=== PATIENT | female | born 1985 | race Caucasian/White ===

== ENCOUNTER 2017-01-02 20:04 | Emergency (ER) | payer OTHER ==
[~2017-01-02] VITALS: Ht 170.2 cm; Wt 118.2 kg
[~2017-01-02 20:04] MED LIST: ONDA4TAB6 PO; ONDA8TAB10 PO; OXYC1TAB24 PO
[2017-01-02 20:05] VITALS: BP 141/94; PULSE 72; RESP 20; O2SAT 97
--- NOTE | 2017-01-02 23:07 | ED.REPORT ---
HPI-Neck Pain Free Text HPI Notes Jan 02, 2017 ED Provider: Stewart Centeno MD A 31 year old female with a history of possible distant herniated disc in her neck presents to the ED complaining of neck pain. The pt was lifting a backpack two days ago when she "felt her neck pop." She did not experience much pain initially, but by the next day she was unable to turn her head or tilt it back. The pt is also complaining of nausea and left arm numbness, as well as pain below her shoulder blades. Nursing Notes Stated Complaint: NECK PAIN Chief Complaint: Head, Face, Neck Trauma Nursing Notes Reviewed: Yes Allergies: Coded Allergies: Mortensen (Verified Allergy, Severe, Anaphylaxis, 11/10/15) Sulfa (Sulfonamide Antibiotics) (Verified Allergy, Severe, Hives, 11/10/15) erythromycin base (Verified Allergy, Mild, 01/02/17) sulfisoxazole (Verified Allergy, Mild, 01/02/17) Scheduled Dexamethasone (Dexamethasone) 4 Mg Tablet 4 MG PO BID Ondansetron ODT (Ondansetron ODT) 8 Mg Tab.rapdis 8 MG PO QID Scheduled PRN Cyclobenzaprine (Cyclobenzaprine) 10 Mg Tablet 10 MG PO TID PRN PRN Spasm Ibuprofen (Ibuprofen) 800 Mg Tablet 800 MG PO TID PRN PRN For Pain Ondansetron (Zofran) 4 Mg Tablet 4 MG PO Q4H PRN PRN For Nausea Ondansetron ODT (Ondansetron ODT) 8 Mg Tab.rapdis 8 MG PO Q4H PRN PRN For Nausea oxyCODONE-Acetaminophen 5-325 mg (oxyCODONE-Acetaminophen 5-325 mg) 1 Each Tablet 1-2 TAB PO Q4 Hours PRN PRN For Pain oxyCODONE-Acetaminophen 5-325 mg (oxyCODONE-Acetaminophen 5-325 mg) 1 Each Tablet 1-2 TAB PO Q6H PRN PRN For Pain oxyCODONE-Acetaminophen 5-325 mg (oxyCODONE-Acetaminophen 5-325 mg) 1 Each Tablet 1-2 TAB PO Q6H PRN PRN For Pain General Time Seen by Provider: 23:06 Chief Complaint Neck pain Hx Obtained From: Patient Arrived By: Walk-in Sudden in Onset?: Yes Onset Occurred: 1 day ago Symptom Duration: Since onset Progression Since Onset: Gradually worsening Recent Healthcare: No recent doctor visit, No recent hospitalization Similar Sx Previous: No Past Medical History Past Medical History Notes: Seen in ED November 10, 2015 for epigastric pain, ultrasound normal to Patient underwent HIDA scan November 17, hyperdynamic EF Past Medical History Obesity Possible disc herniation Past Surgical History none reported Smoking History Current Every Day Smoker Social History Alcohol Use: Denies alcohol use Drug Use: Denies drug use Other Social History: Good social support Ambulatory Status Independent Review of Systems Review of Systems Note: neck stiffness Respiratory: Denies: Non-productive cough Cardiovascular: Denies: Chest pain GI: Reports: Nausea, Denies: Abdominal pain Musculoskeletal: Reports: Back pain ("below shoulder blades"), Neck pain Skin: Denies Rash Neurologic: Reports: Numbness Complete sys rev & neg: except as marked. Physical Exam Initial Vital Signs Vital Signs (First) Date Time Temp Pulse Resp B/P Pulse Ox O2 Delivery O2 Flow Rate FiO2 01/02/17 20:05 36.3 72 20 141/94 97 Initial VS: Reviewed General/Constitutional: Awake, Alert Neck: Atraumatic limited ROM in neck Neurologic: Oriented X3, Speech NL, No motor deficits, No sensory deficits ENT: Atraumatic, Airway patent, Mucous membranes moist Respiratory / Chest: Atraumatic, Breath sounds NL, Breath sounds = bilat, No respiratory distress Cardiovascular: Heart rate NL, Regular rhythm, Heart sounds NL Back: Atraumatic, Full range of motion Upper Extremity / MS: Atraumatic, Full range of motion Skin: Atraumatic, Color NL, No rash, Warm, Dry Head / Eyes: Atraumatic, Normocephalic, PERRL, EOMI Abdomen: Atraumatic, Soft, Non-tender Lower Extremity / Pelvis / MS: Atraumatic, Full range of motion Psychiatric: Affect NL, Mood NL Interpretation & Diagnostics X-Ray C-Spine Interpretation no acute findings Interpretation / Wet Read by: Wet read ED physician Re-Eval/Medical Decision Med Decision/Clinical Course 31-year-old female presents with torticollis and radiculopathy in the left arm after trivial movement of her neck. X-rays negative for bony derangement and negative for locked facet. Improved here after Decadron and Toradol and Ativan, although still moderately stiff. Soft collar provided. Home with ibuprofen or Naprosyn, Percocet, and requested Flexeril. Discharged in stable condition. Follow up with PCP. Source of Hx: Old records Re-Evaluation/Progress : Time of Eval: 01:16 Patient Status: Condition improved Re-Evaluation/Progress Note: Pt rechecked, who is comfortable. She is informed of her diagnosis and the plan for discharge. The pt understands and agrees with the plan. All questions are addressed at this time. Counseled Regarding: Diagnosis, Lab results, Need for follow-up, When/why to return to ED Discharge & Departure Primary Impression: Torticollis, acquired Additional Impression: Cervical radiculopathy Disposition: Home Discharge Condition All VS Reviewed: Yes Condition: Stable Patient Instructions: Spasmodic Torticollis (ED) Additional Instructions: We do not see any evidence of bony derangement in her neck. This is muscle spasm causing her pain. Wear a soft collar either full-time or at least to sleep to protect your neck. Begin ibuprofen 800 mg three times daily. Begin Decadron twice daily for three days. Begin Ativan 1 mg three times daily. Vicodin sparingly for pain as needed. Follow-up with your doctor in the office. If the numbness and tingling is not improving, you may need additional imaging with MRI. Return if any immediate issues. Referrals: Jennyfer Aldrich MD (PCP) ED Scribe Statement Portions of this note were transcribed by Magnus Card. I, Dr. Centeno personally performed the history, physical exam and medical decision-making; I reviewed and confirmed the accuracy of the information in the transcribed note. Signed by: Amy Penaloza, 01/03/2017 and 0115. copies to: Jennyfer Aldrich MD, Christopher W MD Jan 02, 2017 23:07 MAGNUS CARD Jan 02, 2017 23:37
[2017-01-02] MEDS ORDERED: Ketorolac 30 mg/mL 2 mL Inj IM ONE (23:35)
[2017-01-02] MEDS ORDERED: LORazepam 1 mg Tablet PO ONE (23:35)
[2017-01-02] MEDS ORDERED: Dexamethasone 20 mg/2 mL Oral Solution PO ONE (23:35)
[2017-01-03] MEDS ORDERED: HYDR-4003 PO (01:07)
[2017-01-03] MEDS ORDERED: LORA1TAB PO (01:07)
[2017-01-03] MEDS ORDERED: DXM4T PO (01:07)
[2017-01-03] MEDS ORDERED: IBUP800T28 PO (01:07)
[2017-01-03] MEDS ORDERED: Ondansetron 8 mg ODT Tablet PO ONE (01:10)
[2017-01-03] MEDS ORDERED: ONDA8TAB10 PO (01:11)
[2017-01-03] MEDS ORDERED: OXYC1TAB24 PO (01:25)
[2017-01-03] MEDS ORDERED: CYCL10TA9 PO (01:25)
[2017-01-03 01:38] VITALS: BP 141/94; PULSE 72; RESP 20; O2SAT 97
--- NOTE | 2017-01-03 10:07 | DRSVH ---
PROCEDURE: X-RAY CERVICAL SPINE, 2 OR 3 VIEWS INDICATIONS: locked neck, spasm TECHNIQUE: 4 view(s) of the cervical spine were acquired. COMPARISON: None. FINDINGS: Bones: No fractures or dislocations to the T1 level. The lateral masses of C1 appear intact on the odontoid view. No suspicious bony lesions. Soft tissues: No prevertebral soft tissue swelling. IMPRESSION: Loss of lordosis otherwise normal C-spine. Dictated by: Urban Grant [facility] Interpreted: Aure Boone MD on 01/03/2017 at 10:06 Transcribed by: EDVIN on 01/03/2017 at 10:07 Approved by: Aure Boone MD, PhD on 01/03/2017 at 16:57
== END 2017-01-03 01:40 | disposition home or self-care (01) ==
LOC: SED 20:04
DX: M43.6 Torticollis (principal); M54.12 Radiculopathy, cervical region; X50.0XXA Overexertion from strenuous movement or load, initial encounter; Y92.009 Unspecified place in unspecified non-institutional (private) residence as the place of occurrence of the external cause; Y93.89 Activity, other specified; Y99.8 Other external cause status; E66.9 Obesity, unspecified; F17.200 Nicotine dependence, unspecified, uncomplicated; Z68.41 Body mass index [BMI] 40.0-44.9, adult; Z88.2 Allergy status to sulfonamides; Z88.1 Allergy status to other antibiotic agents
CPT/HCPCS: 72040; 96372; 99284; J1885

== ENCOUNTER 2017-03-07 14:37 | Emergency (ER) | payer OTHER ==
[~2017-03-07] VITALS: Ht 167.6 cm; Wt 122.7 kg
[~2017-03-07 14:37] MED LIST changes: +CYCL10TA9 PO; +DXM4T PO; +IBUP800T28 PO
[2017-03-07 15:14] VITALS: BP 131/94; PULSE 101; RESP 16; O2SAT 97
--- NOTE | 2017-03-07 16:55 | ED.REPORT ---
HPI-Rash / Abscess Date of Service March 07, 2017 ED Provider: Corry Valero History of Present Illness: started on right breast 5 days ago. increasing pain. hx of MRSA at age 21. hx of many abscess mehreen in armpits. primary care is mell at [facility]. no antibiotics. Nursing Notes Stated Complaint: ABSCESS ON CHEST Chief Complaint: Skin Rash/Abscess Allergies: Coded Allergies: Mortensen (Verified Allergy, Severe, Anaphylaxis, 03/07/17) Sulfa (Sulfonamide Antibiotics) (Verified Allergy, Severe, Hives, 03/07/17) erythromycin base (Verified Allergy, Mild, 03/07/17) sulfisoxazole (Verified Allergy, Mild, 03/07/17) Scheduled Dexamethasone (Dexamethasone) 4 Mg Tablet 4 MG PO BID Ondansetron ODT (Ondansetron ODT) 8 Mg Tab.rapdis 8 MG PO QID Scheduled PRN Cyclobenzaprine (Cyclobenzaprine) 10 Mg Tablet 10 MG PO TID PRN PRN Spasm Ibuprofen (Ibuprofen) 800 Mg Tablet 800 MG PO TID PRN PRN For Pain Ondansetron (Zofran) 4 Mg Tablet 4 MG PO Q4H PRN PRN For Nausea Ondansetron ODT (Ondansetron ODT) 8 Mg Tab.rapdis 8 MG PO Q4H PRN PRN For Nausea oxyCODONE-Acetaminophen 5-325 mg (oxyCODONE-Acetaminophen 5-325 mg) 1 Each Tablet 1-2 TAB PO Q4 Hours PRN PRN For Pain oxyCODONE-Acetaminophen 5-325 mg (oxyCODONE-Acetaminophen 5-325 mg) 1 Each Tablet 1-2 TAB PO Q6H PRN PRN For Pain oxyCODONE-Acetaminophen 5-325 mg (oxyCODONE-Acetaminophen 5-325 mg) 1 Each Tablet 1-2 TAB PO Q6H PRN PRN For Pain General Time Seen by MD: 16:54 Chief Complaint Abscess, Red area Hx Obtained From: Patient Onset Occurred: 5 days ago Symptom Duration: Since onset Past Medical History Past Medical History Notes: Seen in ED November 10, 2015 for epigastric pain, ultrasound normal to Patient underwent HIDA scan November 17, hyperdynamic EF Past Medical History Obesity Possible disc herniation Past Surgical History none reported Smoking History Current Every Day Smoker Social History Alcohol Use: Denies alcohol use Drug Use: Denies drug use Other Social History: Good social support Ambulatory Status Independent Review of Systems Basic Review of Systems : No dysuria, No frequency Neurologic: NL mental status, No weakness, No numbness Psychiatric: Normal thought content Physical Exam Initial Vital Signs Vital Signs (First) Date Time Temp Pulse Resp B/P Pulse Ox O2 Delivery O2 Flow Rate FiO2 03/07/17 15:14 36.4 101 16 131/94 97 Room Air Initial VS: Reviewed, Vital signs normal Head / Eyes: Atraumatic, Normocephalic, PERRL ENT: Mucous membranes moist, Conjunctiva normal, No scleral icterus Neck: Supple, Non-tender, Full range of motion Respiratory: Breath sounds normal, Clear to auscultation, No respiratory distress Cardiovascular: Regular rate & rhythm, Heart sounds normal, Intact distal pulses Abdomen / GI: Soft, Non-tender, No guarding, No rebound, No distention Back: No CVA tenderness Lymphatic: No lymphadenopathy Extremities: Vascular intact, Neuro intact, No swelling, No tenderness Neurologic: Alert, Oriented, Nonfocal Psychiatric: Mood/affect normal, Behavior normal, Normal thought content General/Constitutional: Awake, Alert, No acute distress, Well appearing, Well developed, Well hydrated, Well nourished, Cooperative, Not toxic appearing Rash / Lesion Notes: right breat is almost totally erthymatous, abcess in lower portion ENT: Atraumatic, Airway patent, Mucous membranes moist, Pharynx NL Respiratory / Chest: Atraumatic, Breath sounds NL, Breath sounds = bilat, No respiratory distress Cardiovascular: Heart rate NL, Regular rhythm, Heart sounds NL Interpretation & Diagnostics Lab Results Interpretation Result Diagram: 03/07/17173903/07/171739 Test 03/07/17 17:40 03/07/17 18:20 White Blood Count 10.6th/mm3 (3.8-10.1) Red Blood Count 5.42mil/mm3 (3.90-5.20) Hemoglobin 14.9g/dL (12.0-15.6) Hematocrit 45.2% (35.0-46.0) Mean Corpuscular Volume 83.4fL (81-100) Mean Corpuscular Hemoglobin 27.5pg (27.0-35.0) Mean Corpuscular Hemoglobin Concent 33.0% (32.0-37.0) Red Cell Distribution Width 14.2% (12.3-15.4) Platelet Count 301bil/L (150-400) Neutrophils (%) (Auto) 65.5% (40-74) Lymphocytes (%) (Auto) 23.3% (14-46) Monocytes (%) (Auto) 7.6% (4-12) Eosinophils (%) (Auto) 2.1% (0-5) Basophils (%) (Auto) 1.3% (0-3) Sodium Level 135mEq/L (134-144) Potassium Level 4.0mEq/L (3.5-5.2) Chloride Level 98mEq/L (97-108) Carbon Dioxide Level 22mmol/L (18-29) Blood Urea Nitrogen 7mg/dL (6-20) Creatinine 0.52mg/dL (0.57-1.00) Estimat Glomerular Filtration Rate 197mL/min (>59) Glucose Level 86mg/dL (60-99) Lactic Acid Level 1.0mmol/L (0.4-2.0) Calcium Level 9.6mg/dL (8.5-10.1) Total Bilirubin 0.3mg/dL (0.0-1.2) Aspartate Amino Transf (AST/SGOT) 20U/L (0-50) Alanine Aminotransferase (ALT/SGPT) 28U/L (0-32) Alkaline Phosphatase 64U/L (25-150) Total Protein 7.9g/dL (6.4-8.4) Albumin 4.2g/dL (3.4-5.0) Urine Color Yellow (YELLOW) Urine Appearance Clear (CLEAR,HAZY) Urine pH 5.5 (5.0-8.0) Urine Specific [place] 1.020 (1.003-1.035) Urine Protein Negativemg/dL (NEG,TRACE) Urine Glucose (UA) Negativemg/dL (NEGATIVE) Urine Ketones Negativemg/dL (NEGATIVE) Urine Occult Blood Negative (NEGATIVE) Urine Nitrite Negative (NEGATIVE) Urine Bilirubin Negative (NEGATIVE) Urine Urobilinogen Normalmg/dL (NORMAL) Urine Leukocyte Esterase Small (NEGATIVE) Urine RBC 0-2/hpf (0-2) Urine WBC 6-10/hpf (0-5) Urine Epithelial Cells Many/hpf (NONE-MOD) Urine Crystals None seen (NONE SEEN) Urine Bacteria Few/hpf (NONE-FEW) Urine Hyaline Casts None/lpf (NONE) Urine Granular Casts None seen (NONE SEEN) Urine Waxy Casts None seen (NONE SEEN) Urine Red Blood Cell Casts None seen (NONE SEEN) Urine White Blood Cell Casts None seen (NONE SEEN) Urine Mucus None seen (None Seen) Urine Trichomonas None seen (NONE SEEN) Urine Yeast None (NONE SEEN) Urinalysis Comment Amorphous sediment Urine Culture Reflexed Indicated US Soft Tissue/Musculoskeletal PROCEDURE: US BREAST LIMITED SONOGRAM, RIGHT INDICATIONS: abscess right breast TECHNIQUE: Real-time focused scanning was performed of the right breast with image documentation. COMPARISON: None. FINDINGS: There is a 2.4 x 1.1 x 3.1 cm complex mass/fluid in the 4:30 position of the right breast. Color Doppler evaluation demonstrates peripheral and internal vascularity. IMPRESSION: Complex mass in the 4:30 position of the right breast may represent inflammatory phlegmon/developing abscess versus less likely neoplastic process. Recommend correlation with clinical data. BI-RADS: 0 Dictated by: Aure Boone MD, PhD on 03/07/2017 at 18:42 Approved by: Aure Boone MD, PhD on 03/07/2017 at 18:44 Procedures Procedure Notes: Abscess is aspirated by Dr. Henderson, redness does decrease on breast. Area of erthyma is outlined times and dated. Patient agrees with p[tremaine to go home and return for a repeat dose of vancomycin Re-Eval/Medical Decision Med Decision/Clinical Course 31 year old female presents for evualation of right breast abscess that has been preseent for 5 days. Denies DM. Consult with general surgery Dr. Henderson. He feels aspiration can be done in the ER. cultures sent. redness has decreased. Will recheck tomorrow. To return if redness goes outside of line by more than 1 inch Discharge & Departure Impression: Primary Impression: Abscess Additional Impression: Cellulitis Laterality: right Disposition: Home Patient Instructions: Abscess Incision and Drainage (GEN) Additional Instructions: Dr. Henderson drained the abscess in the ER. The cultures are pending. Please return tomorrow afternoon/ evening for a repeat dose of vancomycin. REturn sooner if the redness goes outside the line by more than 1 inch. Please get a sports bra. Compression would be helpful. Use percocet 1 to 2 every 4 to 6 hours as needed for discomfort. I am sorry this has happened to you. Referrals: Jennyfer Aldrich MD (PCP) EDSupervising Provider for APC: Pro Knox MD copies to: Jennyfer Aldrich MD, Sue ARNP March 07, 2017 16:55
[2017-03-07] MEDS ORDERED: 0.9% Sodium Chloride 1,000 ML IV ONE (17:10)
[2017-03-07 17:24] VITALS: BP 146/96; PULSE 92; RESP 18; O2SAT 98
[2017-03-07 17:57] LABS: BASOPHILS % (AUTO) 1.3 % (0-3); EOSINOPHILS % (AUTO) 2.1 % (0-5); MONOCYTES % (AUTO) 7.6 % (4-12); Mean Corpuscular Hemoglobin 27.5 pg (27.0-35.0); Mean Corpuscular Volume 83.4 fL (81-100); NEUTROPHILS % (AUTO) 65.5 % (40-74); Platelet Count 301 bil/L (150-400)
[2017-03-07] MEDS ORDERED: Ondansetron 2 mg/mL 2 mL Inj IVPUSH ONE (18:25)
--- NOTE | 2017-03-07 18:45 | DRSVH ---
PROCEDURE: US BREAST LIMITED SONOGRAM, RIGHT INDICATIONS: abscess right breast TECHNIQUE: Real-time focused scanning was performed of the right breast with image documentation. COMPARISON: None. FINDINGS: There is a 2.4 x 1.1 x 3.1 cm complex mass/fluid in the 4:30 position of the right breast. Color Doppler evaluation demonstrates peripheral and internal vascularity. IMPRESSION: Complex mass in the 4:30 position of the right breast may represent inflammatory phlegmo n/developing abscess versus less likely neoplastic process. Recommend correlation with clinical data . BI-RADS: 0 Dictated by: Aure Boone MD, PhD on 03/07/2017 at 18:42 Approved by: Aure Boone MD, PhD on 03/07/2017 at 18:44
[2017-03-07 19:02] LABS: APPEARANCE,URINE CLEAR (CLEAR,HAZY); COLOR,URINE YELLOW (YELLOW); PH,URINE 5.5 (5.0-8.0)
[2017-03-07 19:03] LABS: OCCULT BLOOD,URINE NEGATIVE (NEGATIVE); UROBILINOGEN,URINE NORMAL (NORMAL)
[2017-03-07] MEDS ORDERED: HYDROmorphone 1 mg/mL Inj IVPUSH ONE ×2 (20:05→21:35)
[2017-03-07] MEDS ORDERED: Lidocaine 1%/Epi 1:100,000 30 mL MDV ONE (20:36)
[2017-03-07 22:11] VITALS: BP 97/70; PULSE 76; RESP 18; O2SAT 97
--- NOTE | 2017-03-08 06:57 | CONS ---
[address] [address] CONSULTATION REPORT PATIENT: DEYANIRA PANDEY : 1985 MR#: [id number] ADMIT: 03/07/2017 JOB ID: [id number] DATE OF SERVICE: 03/07/2017 REQUESTED BY: PAZ Joaquin. REASON FOR CONSULTATION: The patient seen for decision to operate. HISTORY OF PRESENT ILLNESS: A 31-year-old female, who is an everyday smoker, who has a history of MRSA, who presented to the emergency department with a right breast abscess and cellulitis. She has a past history of MRSA. She says she has had previous subcutaneous abscesses that after a day or so have opened and drained, and she thought this one would do the same but it did not. She came to the emergency department, was evaluated by Corry Valero who asked me to see her in consultation, stating she did not think that she could drain this abscess. PAST MEDICAL HISTORY: Illnesses: 1. Tobacco addiction. 2. Obesity. 3. History of MRSA abscesses. 4. Polycystic ovary syndrome. ALLERGIES: 1. . 2. SULFA. 3. ERYTHROMYCIN BASE. 4. SULFASOXAZOLE. CURRENT MEDICATIONS: 1. Dexamethasone 4 mg p.o. b.i.d. 2. Odansetron 8 mg p.o. q.i.d. SOCIAL HISTORY: She is . Her 's name is Dilip. She formerly worked at [employer]. She is currently a student and is transferring to [place] to get a degree in business. HABITS: Tobacco, every day smoker. Alcohol, none. REVIEW OF SYSTEMS: Otherwise negative. PHYSICAL EXAMINATION: Pleasant, alert, appearing stated age, in no distress. BMI 44. Temperature is 36.8, brachial blood pressure 146/96, pulse 92, respiratory rate 18, O2 sat room air 98%. HEENT: PERRLA, EOMI. No scleral icterus. Neck: No masses. Lungs: Clear. Cardiac exam: Regular rhythm. Right breast: There is an abscess about the size of a 50 cent piece in the medial breast with surrounding erythema. No evidence of other soft tissue abscesses. No evidence of trauma. LABORATORY RESULTS: White blood cell count 10,600, normal differential, hematocrit is 45.2, platelet count 300,000. Electrolytes are normal. Glucose is 86. Lactic acid 1.0. IMPRESSION: Right breast abscess. I discussed options with the patient. I think that this can be incised and drained in the emergency department. I discussed this with the patient, and she agrees to proceed. An informed consent was obtained. Assuming I find what I think I am going to find, I will certainly culture this and that pack it and then plan for her to return tomorrow to the emergency department to have it reinspected and to get another dose of vancomycin or some other appropriate antibiotic if cultures results are back.
--- NOTE | 2017-03-08 08:48 | OP ---
[address] [address] OPERATIVE REPORT PATIENT: DEYANIRA PANDEY : 1985 MR#: [id number] ADMIT: 03/07/2017 JOB ID: [id number] DATE OF SURGERY: 03/07/2017 PREOPERATIVE DIAGNOSIS(ES): Right breast abscess. POSTOPERATIVE DIAGNOSIS(ES): Right breast abscess. OPERATION: Incision and drainage right breast abscess, complex. SURGEON: Contreras Henderson M.D. INDICATIONS: A 31-year-old female, who has a history of MRSA abscesses. She presents with a medial right breast abscess which clinically is superficial with surrounding erythema and after discussing options with the patient, it was elected to proceed with incision and drainage in the emergency department. Informed consent was obtained. FINDINGS: She had a superficial subcutaneous abscess. I actually do not think it extended into the breast tissue proper. It was completely drained. I put pressure on the surrounding breast tissue. There appeared to be no deep sinus tracts or drainage. After incising and draining it, it was cultured and the erythema surrounding clearly diminished and improved and the patient agreed with that. PROCEDURE: A time-out was held. Using Betadine her right breast was prepped and draped in the usual fashion. She received local anesthesia with 1% lidocaine with epinephrine. A transverse incision was made. The abscess was entered, completely drained. It was cultured. There was minimal bleeding. It was packed with 2x2s and covered with 4x4s. She tolerated the procedure well. PLAN: I discussed this with Corry Duque. She will arrange for the cultures to be sent to the laboratory. She will enter that into the computer. She also arranged for the patient to return tomorrow to have her abscess inspected and probably give her one more dose of vancomycin.
== END 2017-03-07 22:13 | disposition home or self-care (01) ==
LOC: SED 14:37
DX: N61.1 Abscess of the breast and nipple (principal); N61.0 Mastitis without abscess; F17.200 Nicotine dependence, unspecified, uncomplicated; Z88.1 Allergy status to other antibiotic agents; Z88.2 Allergy status to sulfonamides; Z88.8 Allergy status to other drugs, medicaments and biological substances; Z91.018 Allergy to other foods
CPT/HCPCS: 36415; 76642; 80053; 81000; 81025; 83605; 85025; 87040; 87070; 87086; 87088; 87205; 96365; 96366; 96375; 96376; 99285; J1170; J1200; J1885; J2405; J3370; J7060

== ENCOUNTER 2017-03-08 14:20 | Emergency (ER) | payer OTHER ==
[~2017-03-08] VITALS: Ht 167.6 cm; Wt 122.7 kg
[2017-03-08 14:22] VITALS: BP 142/95; PULSE 100; RESP 15; O2SAT 96
--- NOTE | 2017-03-08 14:30 | ED.REPORT ---
HPI-Recheck W/B/S Date of Service March 08, 2017 ED Provider: History of Present Illness: still with shooting pain. vomiting last night. not vomiting now. redness has returned along with increased swelling. right breast abscess Nursing Notes Stated Complaint: RE CHECK Chief Complaint: Wound Recheck/Suture Removal Nursing Notes Reviewed: Yes Allergies: Coded Allergies: Mortensen (Verified Allergy, Severe, Anaphylaxis, 03/08/17) Sulfa (Sulfonamide Antibiotics) (Verified Allergy, Severe, Hives, 03/08/17) erythromycin base (Verified Allergy, Mild, 03/08/17) sulfisoxazole (Verified Allergy, Mild, 03/08/17) Scheduled Dexamethasone (Dexamethasone) 4 Mg Tablet 4 MG PO BID Ondansetron ODT (Ondansetron ODT) 8 Mg Tab.rapdis 8 MG PO QID Scheduled PRN Cyclobenzaprine (Cyclobenzaprine) 10 Mg Tablet 10 MG PO TID PRN PRN Spasm Ibuprofen (Ibuprofen) 800 Mg Tablet 800 MG PO TID PRN PRN For Pain Ondansetron (Zofran) 4 Mg Tablet 4 MG PO Q4H PRN PRN For Nausea Ondansetron ODT (Ondansetron ODT) 8 Mg Tab.rapdis 8 MG PO Q4H PRN PRN For Nausea oxyCODONE-Acetaminophen 5-325 mg (oxyCODONE-Acetaminophen 5-325 mg) 1 Each Tablet 1-2 TAB PO Q4 Hours PRN PRN For Pain oxyCODONE-Acetaminophen 5-325 mg (oxyCODONE-Acetaminophen 5-325 mg) 1 Each Tablet 1-2 TAB PO Q6H PRN PRN For Pain oxyCODONE-Acetaminophen 5-325 mg (oxyCODONE-Acetaminophen 5-325 mg) 1 Each Tablet 1-2 TAB PO Q6H PRN PRN For Pain General Time Seen by Provider: 14:29 Chief Complaint Wound check Hx Obtained From: Patient Past Medical History Past Medical History Notes: Seen in ED November 10, 2015 for epigastric pain, ultrasound normal to Patient underwent HIDA scan November 17, hyperdynamic EF Past Medical History Obesity Possible disc herniation Past Surgical History none reported Smoking History Current Every Day Smoker Social History Alcohol Use: Denies alcohol use Drug Use: Denies drug use Other Social History: Good social support Ambulatory Status Independent Review of Systems Basic Review of Systems Eyes: Vision NL, No discharge ENT: Hearing NL, No pain, No nasal congestion, No pharyngeal pain Respiratory: No shortness of breath, No cough, No wheeze Cardiovascular: No chest pain, No dyspnea on exertion, No orthopnea, No parox noct dyspnea, No palpitations GI: No abdominal pain, No anorexia, No nausea, No vomiting : No dysuria, No frequency Musculoskeletal: No extremity swelling, No extremity pain, Full range of motion , Joints NL Hematologic: No bleeding, No bruising Endocrine: No cold intolerance, No heat intolerance, No weight gain, No weight loss Allergy / Immune: No allergy Neurologic: NL mental status, No weakness, No numbness Psychiatric: Normal thought content Physical Exam Initial Vital Signs Vital Signs (First) Date Time Temp Pulse Resp B/P Pulse Ox O2 Delivery O2 Flow Rate FiO2 03/08/17 14:22 36.5 100 15 142/95 96 Room Air Initial VS: Reviewed, Vital signs normal General/Constitutional: Well-developed, Well-nourished Head / Eyes: Atraumatic, Normocephalic, PERRL ENT: Mucous membranes moist, Conjunctiva normal, No scleral icterus Neck: Supple, Non-tender, Full range of motion Respiratory: Breath sounds normal, Clear to auscultation, No respiratory distress Cardiovascular: Regular rate & rhythm, Heart sounds normal, Intact distal pulses Abdomen / GI: Soft, Non-tender, No guarding, No rebound, No distention Back: No CVA tenderness Lymphatic: No lymphadenopathy Extremities: Vascular intact, Neuro intact, No swelling, No tenderness Neurologic: Alert, Oriented, Nonfocal Psychiatric: Mood/affect normal, Behavior normal, Normal thought content Rash / Lesion Notes: breast erthyma has remained in the line. no discharge out. General/Constitutional: Awake, Alert, No acute distress, Well appearing, Well developed, Well hydrated ENT: Atraumatic, Airway patent, Mucous membranes moist, Pharynx NL Respiratory / Chest: Atraumatic, Breath sounds NL, Breath sounds = bilat, No respiratory distress Interpretation & Diagnostics Lab Results Interpretation Result Diagram: 03/08/17 1510 Test 03/08/17 15:10 White Blood Count 8.9th/mm3 (3.8-10.1) Red Blood Count 5.11mil/mm3 (3.90-5.20) Hemoglobin 14.4g/dL (12.0-15.6) Hematocrit 43.1% (35.0-46.0) Mean Corpuscular Volume 84.3fL (81-100) Mean Corpuscular Hemoglobin 28.2pg (27.0-35.0) Mean Corpuscular Hemoglobin Concent 33.4% (32.0-37.0) Red Cell Distribution Width 14.2% (12.3-15.4) Platelet Count 294bil/L (150-400) Neutrophils (%) (Auto) 66.9% (40-74) Lymphocytes (%) (Auto) 20.8% (14-46) Monocytes (%) (Auto) 8.9% (4-12) Eosinophils (%) (Auto) 2.7% (0-5) Basophils (%) (Auto) 0.6% (0-3) Re-Eval/Medical Decision Med Decision/Clinical Course 31 year old female presents for evualation of a wound recheck. Erthyma has remained in the line, patient's pain is controlled with oral medication. No sign of nec fas or cancer. Discharge & Departure Impression: Primary Impression: Abscess Additional Impression: Cellulitis Site of cellulitis of trunk: chest wall Disposition: Home Patient Instructions: Abscess (ED), Abscess Incision and Drainage (GEN) Additional Instructions: The abscess was opened last night by Dr. Henderson. The site does look better today than yesterday. Your white count is normal. You had a dose of vancomycin and a liter of fluid in the ER. The culture does not have the sensitivities yet. I will check tomorrow to see if they are ready. REturn to the ER tomorrow. Use oxycodone 2 pills every 4 to 6 hours as needed for pain. You can take them with zofran to help prevent vomiting. The common expected side effect of zofran is constipation. Popcorn 3 cups a day with lots of water will be helpful .If you have not had a stool movement in 3 to 4 days, please do a dose of magnesium citrate 1/2 a bottle. REpeat in 24 hours if no stool movement. This is available over the counter. Referrals: Jennyfer Aldrich MD (PCP) EDSupervising Provider for APC: Kobe Chaves MD copies to: Jennyfer Aldrich MD, Sue ARNP March 08, 2017 14:29
[2017-03-08] MEDS ORDERED: oxyCODONE-Acetamin 10-325 mg Tablet PO ONE (14:50)
[2017-03-08] MEDS ORDERED: Ondansetron 8 mg ODT Tablet PO ONE (14:50)
[2017-03-08] MEDS ORDERED: Vancomycin Inj 2,000 MG in 0.9% Sodium Chloride 500 ML IV ONE (15:00)
[2017-03-08] MEDS ORDERED: 0.9% Sodium Chloride 1,000 ML IV ONE (15:40)
[2017-03-08 15:54] LABS: BASOPHILS % (AUTO) 0.6 % (0-3); EOSINOPHILS % (AUTO) 2.7 % (0-5); MONOCYTES % (AUTO) 8.9 % (4-12); Mean Corpuscular Hemoglobin 28.2 pg (27.0-35.0); Mean Corpuscular Volume 84.3 fL (81-100); NEUTROPHILS % (AUTO) 66.9 % (40-74); Platelet Count 294 bil/L (150-400)
[2017-03-08 18:25] VITALS: BP 149/79; PULSE 85; O2SAT 97
== END 2017-03-08 18:26 | disposition home or self-care (01) ==
LOC: SED 14:20
DX: N61.1 Abscess of the breast and nipple (principal); L03.313 Cellulitis of chest wall; R11.10 Vomiting, unspecified; F17.200 Nicotine dependence, unspecified, uncomplicated; Z88.1 Allergy status to other antibiotic agents; Z88.2 Allergy status to sulfonamides; Z88.8 Allergy status to other drugs, medicaments and biological substances; Z91.018 Allergy to other foods
CPT/HCPCS: 36415; 85025; 96361; 96365; 96366; 96375; 99284; J1200; J3370; J7030; J7040

== ENCOUNTER 2017-03-09 17:07 | Emergency (ER) | payer OTHER ==
[~2017-03-09] VITALS: Ht 167.6 cm; Wt 122.7 kg
[2017-03-09 17:19] VITALS: BP 117/72; PULSE 89; RESP 20; O2SAT 95
--- NOTE | 2017-03-09 17:48 | ED.REPORT ---
HPI-Recheck W/B/S Date of Service March 09, 2017 ED Provider: History of Present Illness: feels it is worse, increase in pain. Right Breast abscess was opened Friday Evening by Dr. Henderson. Blood cultures are negative, wound culture is negative, shows few scatter positive cocci. No C and S ready yet. Nursing Notes Stated Complaint: 3RD-IV INFUSION RECHECK Chief Complaint: Skin Rash/Abscess Nursing Notes Reviewed: Yes Allergies: Coded Allergies: Mortensen (Verified Allergy, Severe, Anaphylaxis, 03/08/17) Sulfa (Sulfonamide Antibiotics) (Verified Allergy, Severe, Hives, 03/08/17) erythromycin base (Verified Allergy, Mild, 03/08/17) sulfisoxazole (Verified Allergy, Mild, 03/08/17) Scheduled Dexamethasone (Dexamethasone) 4 Mg Tablet 4 MG PO BID Ondansetron ODT (Ondansetron ODT) 8 Mg Tab.rapdis 8 MG PO QID Scheduled PRN Cyclobenzaprine (Cyclobenzaprine) 10 Mg Tablet 10 MG PO TID PRN PRN Spasm Ibuprofen (Ibuprofen) 800 Mg Tablet 800 MG PO TID PRN PRN For Pain Ondansetron (Zofran) 4 Mg Tablet 4 MG PO Q4H PRN PRN For Nausea Ondansetron ODT (Ondansetron ODT) 8 Mg Tab.rapdis 8 MG PO Q4H PRN PRN For Nausea oxyCODONE-Acetaminophen 5-325 mg (oxyCODONE-Acetaminophen 5-325 mg) 1 Each Tablet 1-2 TAB PO Q4 Hours PRN PRN For Pain oxyCODONE-Acetaminophen 5-325 mg (oxyCODONE-Acetaminophen 5-325 mg) 1 Each Tablet 1-2 TAB PO Q6H PRN PRN For Pain oxyCODONE-Acetaminophen 5-325 mg (oxyCODONE-Acetaminophen 5-325 mg) 1 Each Tablet 1-2 TAB PO Q6H PRN PRN For Pain General Time Seen by Provider: 17:48 Chief Complaint Wound check Wound / Injury Type: Abscess Hx Obtained From: Patient Past Medical History Past Medical History Notes: Seen in ED November 10, 2015 for epigastric pain, ultrasound normal to Patient underwent HIDA scan November 17, hyperdynamic EF Past Medical History Obesity Possible disc herniation Past Surgical History none reported Smoking History Current Every Day Smoker Social History Alcohol Use: Denies alcohol use Drug Use: Denies drug use Other Social History: Good social support Ambulatory Status Independent Review of Systems Basic Review of Systems Eyes: Vision NL, No discharge : No dysuria, No frequency Psychiatric: Normal thought content Physical Exam Initial Vital Signs Vital Signs (First) Date Time Temp Pulse Resp B/P Pulse Ox O2 Delivery O2 Flow Rate FiO2 03/09/17 17:19 36.8 89 20 117/72 95 Room Air Initial VS: Reviewed, Vital signs normal General/Constitutional: Well-developed, Well-nourished Head / Eyes: Atraumatic, Normocephalic, PERRL ENT: Mucous membranes moist, Conjunctiva normal, No scleral icterus Neck: Supple, Non-tender, Full range of motion Respiratory: Breath sounds normal, Clear to auscultation, No respiratory distress Cardiovascular: Regular rate & rhythm, Heart sounds normal, Intact distal pulses Abdomen / GI: Soft, Non-tender, No guarding, No rebound, No distention Back: No CVA tenderness Lymphatic: No lymphadenopathy Extremities: Vascular intact, Neuro intact, No swelling, No tenderness Neurologic: Alert, Oriented, Nonfocal Psychiatric: Mood/affect normal, Behavior normal, Normal thought content Rash / Lesion Notes: site looks great. No discharge out. Erthyma is present but decreased since Friday General/Constitutional: Awake, Alert, No acute distress Respiratory / Chest: Atraumatic, Breath sounds NL, Breath sounds = bilat, No respiratory distress Cardiovascular: Heart rate NL, Regular rhythm, Heart sounds NL, No gallop Interpretation & Diagnostics Lab Results Interpretation Result Diagram: 03/09/17181903/09/171819 Test 03/09/17 18:20 White Blood Count 8.7th/mm3 (3.8-10.1) Red Blood Count 4.68mil/mm3 (3.90-5.20) Hemoglobin 13.1g/dL (12.0-15.6) Hematocrit 39.8% (35.0-46.0) Mean Corpuscular Volume 85.0fL (81-100) Mean Corpuscular Hemoglobin 28.0pg (27.0-35.0) Mean Corpuscular Hemoglobin Concent 32.9% (32.0-37.0) Red Cell Distribution Width 13.8% (12.3-15.4) Platelet Count 270bil/L (150-400) Neutrophils (%) (Auto) 63.5% (40-74) Lymphocytes (%) (Auto) 24.2% (14-46) Monocytes (%) (Auto) 8.4% (4-12) Eosinophils (%) (Auto) 3.1% (0-5) Basophils (%) (Auto) 0.6% (0-3) Sodium Level 139mEq/L (134-144) Potassium Level 3.8mEq/L (3.5-5.2) Chloride Level 103mEq/L (97-108) Carbon Dioxide Level 24mmol/L (18-29) Blood Urea Nitrogen 9mg/dL (6-20) Creatinine 0.64mg/dL (0.57-1.00) Estimat Glomerular Filtration Rate 155mL/min (>59) Glucose Level 93mg/dL (60-99) Calcium Level 9.0mg/dL (8.5-10.1) Total Bilirubin 0.3mg/dL (0.0-1.2) Aspartate Amino Transf (AST/SGOT) 19U/L (0-50) Alanine Aminotransferase (ALT/SGPT) 26U/L (0-32) Alkaline Phosphatase 54U/L (25-150) Total Protein 7.0g/dL (6.4-8.4) Albumin 3.7g/dL (3.4-5.0) Hold Iqbal Top Tube Received (Received) Lab Results Interpretation: US does not show any abscess Re-Eval/Medical Decision Med Decision/Clinical Course 31 year old female presents to the ER for breast abscess recheck. Initially the entire breast was erthymatous. After opening, the site has decreased in erthyma. 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 She has had 3 doses of vancomycin. She has a sulfa allergy. She is being provided 2 grams rocephin in the ER. She will be discharged keflex and will follow with Dr. Henderson tomorrow. Discharge & Departure Impression: Primary Impression: Abscess Disposition: Home Patient Instructions: Abscess (ED) Additional Instructions: The site of the abscess looks great. No additional discharge out. No drainage noted. The labs are all normal. Blood cultures are negative. The US tonight does not show any sign of an abscess. The opening of the abscess was minimal depth. You can apply bacitracin to the site. It is OK to get it wet in the shower. Use keflex 500 mg 4 times a day for 10 days. Use percocet 1 every 4 to 6 hours as needed for pain control. Add ibuprofen 800 mg to help reduce the swelling. Also doxycycline 100 mg in the am and pm for 7 days. Referrals: Jennyfer Aldrich MD (PCP) Contreras Henderson MD EDSupervising Provider for APC: Rogerio Bhatt DO copies to: Contreras Henderson MD; Jennyfer Aldrich MD, Sue ARNP March 09, 2017 17:48
[2017-03-09] MEDS ORDERED: oxyCODONE-Acetamin 10-325 mg Tablet PO ONE (18:00)
[2017-03-09] MEDS ORDERED: diphenhydrAMINE 50 mg Capsule PO ONE (18:00)
[2017-03-09] MEDS ORDERED: 0.9% Sodium Chloride 1,000 ML IV ONE (18:00)
[2017-03-09] MEDS ORDERED: Vancomycin Inj 2,000 MG in 0.9% Sodium Chloride 500 ML IV ONE (18:05)
[2017-03-09 18:33] LABS: BASOPHILS % (AUTO) 0.6 % (0-3); EOSINOPHILS % (AUTO) 3.1 % (0-5); MONOCYTES % (AUTO) 8.4 % (4-12); NEUTROPHILS % (AUTO) 63.5 % (40-74); Platelet Count 270 bil/L (150-400)
[2017-03-09] MEDS ORDERED: cefTRIAXone Inj 2,000 MG in Dextrose 5% Minibag Plus 50 ML IV ONE (19:20)
--- NOTE | 2017-03-09 19:26 | DRSVH ---
PROCEDURE: US BREAST LIMITED SONOGRAM, RIGHT INDICATIONS: feels breast is worse TECHNIQUE: Real-time focused scanning was performed of the right breast with image documentation. COMPARISON: None. FINDINGS: No abscess identified. IMPRESSION: No abscess identified. Dictated by: Aure Boone MD, PhD on 03/09/2017 at 19:24 Approved by: Aure Boone MD, PhD on 03/09/2017 at 19:25
[2017-03-09] MEDS ORDERED: HYDROmorphone 1 mg/mL Inj IVPUSH ONE (20:40)
== END 2017-03-09 21:42 | disposition home or self-care (01) ==
LOC: SED 17:07
DX: N61.1 Abscess of the breast and nipple (principal); F17.200 Nicotine dependence, unspecified, uncomplicated; Z88.1 Allergy status to other antibiotic agents; Z88.2 Allergy status to sulfonamides; Z91.018 Allergy to other foods
CPT/HCPCS: 36415; 76642; 80053; 85025; 96365; 96366; 96367; 96375; 99285; J0696; J1170; J1200; J3370; J7030; J7040

== ENCOUNTER 2017-05-08 20:15 | Emergency (ER) | payer OTHER ==
[~2017-05-08] VITALS: Ht 167.6 cm; Wt 127.3 kg
[2017-05-08 20:30] VITALS: BP 141/92; PULSE 101; RESP 20; O2SAT 97
--- NOTE | 2017-05-08 21:53 | ED.REPORT ---
HPI-Rash / Abscess Date of Service May 08, 2017 ED Provider: Stanton Bonner MD Pt is a 31 year old female with a history of abscess to the right breast and MRSA who presents to the ED complaining of 2 abscesses on her left breast. She c /o associated pain that radiates to her left flank and left shoulder. She denies drainage and breast feeding. The pt describes the pain as "throbbing" and "shooting." Per reports, her cultures of previous abscesses did not show any predominate organisms. Nursing Notes Stated Complaint: LEFT BREAST ABSCESS Chief Complaint: Skin Rash/Abscess Nursing Notes Reviewed: Yes Allergies: Coded Allergies: Mortensen (Verified Allergy, Severe, Anaphylaxis, 05/08/17) Sulfa (Sulfonamide Antibiotics) (Verified Allergy, Severe, Hives, 05/08/17) erythromycin base (Verified Allergy, Mild, 05/08/17) sulfisoxazole (Verified Allergy, Mild, 05/08/17) Scheduled Dexamethasone (Dexamethasone) 4 Mg Tablet 4 MG PO BID Ondansetron ODT (Ondansetron ODT) 8 Mg Tab.rapdis 8 MG PO QID Scheduled PRN Cyclobenzaprine (Cyclobenzaprine) 10 Mg Tablet 10 MG PO TID PRN PRN Spasm Ibuprofen (Ibuprofen) 800 Mg Tablet 800 MG PO TID PRN PRN For Pain Ondansetron (Zofran) 4 Mg Tablet 4 MG PO Q4H PRN PRN For Nausea Ondansetron ODT (Ondansetron ODT) 8 Mg Tab.rapdis 8 MG PO Q4H PRN PRN For Nausea oxyCODONE-Acetaminophen 5-325 mg (oxyCODONE-Acetaminophen 5-325 mg) 1 Each Tablet 1-2 TAB PO Q4 Hours PRN PRN For Pain oxyCODONE-Acetaminophen 5-325 mg (oxyCODONE-Acetaminophen 5-325 mg) 1 Each Tablet 1-2 TAB PO Q6H PRN PRN For Pain oxyCODONE-Acetaminophen 5-325 mg (oxyCODONE-Acetaminophen 5-325 mg) 1 Each Tablet 1-2 TAB PO Q6H PRN PRN For Pain General Time Seen by MD: 21:52 Chief Complaint Abscess Hx Obtained From: Patient Arrived By: Walk-in Onset Occurred: Onset unknown Symptom Duration: Since onset Location: : Chest Quality: Painful Severity: Current: Moderate Severity: Maximum: Moderate Recent Healthcare: No recent doctor visit, No recent hospitalization Similar Sx Previous: Yes Past Medical History Past Medical History Notes: Seen in ED November 10, 2015 for epigastric pain, ultrasound normal to Patient underwent HIDA scan November 17, hyperdynamic EF Past Medical History Obesity Possible disc herniation Left breast abscess Past Surgical History none reported Smoking History Current Every Day Smoker Social History Alcohol Use: Denies alcohol use Drug Use: Denies drug use Other Social History: Good social support Ambulatory Status Independent Review of Systems + Left breast pain Respiratory: Denies: Non-productive cough, Shortness of breath Cardiovascular: Reports: Chest pain Skin: Reports Swelling (abscess) Complete sys rev & neg: except as marked. Physical Exam Initial Vital Signs Vital Signs (First) Date Time Temp Pulse Resp B/P Pulse Ox O2 Delivery O2 Flow Rate FiO2 05/08/17 20:30 37.0 101 20 141/92 97 Room Air Initial VS: Reviewed, Vital signs abnormal Head / Eyes: Atraumatic, Normocephalic Neck: Supple, Full range of motion Respiratory: Breath sounds normal, Clear to auscultation, No respiratory distress Cardiovascular: Regular rate & rhythm, Heart sounds normal, Intact distal pulses Abdomen / GI: Soft, Non-tender Extremities: Vascular intact, Neuro intact Neurologic: Alert, Oriented, Nonfocal Psychiatric: Mood/affect normal, Behavior normal General/Constitutional: Awake, Alert, Cooperative Skin: Atraumatic, Warm, Dry, Intact 3 abscess on her left breast - one is at 6:00 position, another at 9:30 position, and one at 10:00 position. The abscess at 9:30 is larger of the 3 abscesses and is surrounded by cellulitis. On her right breast, she has 4 scarred areas from previous abscesses; one of which is tender with 1 cm of fluctuance. Interpretation & Diagnostics US LEFT BREAST: IMPRESSION: 3 hypoechoic collections in the left breast 7 to 10:00 position measuring up to 1.9 x 1.8 cm. One of them is probably a lymph node and there is central fatty hilus. The other 2 could represent small abscesses. Transmitted to the ED at 23:48 by Kyle De La Rosa M.D. Lab Results Interpretation Test 05/09/17 00:05 Hold Urine Received (Received) Procedures Incision & Drainage Abscess Time: 00:20 Procedure Performed by: ED physician Consent / Setup / Site Prep: Consent from patient, Time-out performed, Hand hygiene observed, Stand sterile technique, Standard surgical scrub, Sterile drapes applied Location of Abscess: 9:30 position of left breast Skin Preparation Agent: Shurclens Local Anesthesia: Lidocaine w epi 1%, Bupivacaine 0.5% (w/ epi) Procedural Sedation/Analgesia: Sedation: Etomidate Incised Abscess with Scalpel: #11 Pus Drained: Large, Purulent discharge Irrigation: Yes Post-Procedure / Complications: Packing placed, Drain placed, Culture obtained, Gram stain ordered, Dressing applied, No complications, Condition improved, Tolerated procedure well, Patient stable Time: 00:20 Procedure Performed by: ED physician Consent / Setup / Site Prep: Informed consent provided, Consent from patient , Time-out performed, Hand hygiene observed, Stand sterile technique, Standard surgical scrub, Sterile drapes applied Location of Abscess: 10:00 position of left breast Skin Preparation Agent: Shurclens Local Anesthesia: Lidocaine w epi 1%, Bupivacaine 0.5% (w/epi) Procedural Sedation/Analgesia: Sedation: Etomidate Incised Abscess with Scalpel: #11 Irrigation: Yes Post-Procedure / Complications: Packing placed, Drain placed, Culture obtained, Gram stain ordered, Dressing applied, No complications, Condition improved, Tolerated procedure well, Patient stable Proced Mod Sedation/Analgesia Time: 00:20 Procedure Performed by: ED physician Sedation Time: 16 - 30 min (26) Consent / Setup: Informed consent provided, Consent from patient, Time-out performed, Hand hygiene observed, Stand sterile technique, Position supine Indication: Other (Breast abscess) Preparation: campus monitor applied, Pulse oximeter applied, Constant attendance, IV access established, Eval last meal time, Supplemental oxygen, Procedure explained, Suction available, End tidal CO2 mon applied VS Prior to Procedure: All vital signs normal Mallampati: Class & Anatomy: 1 tonsils/uvula/s palate Airway Exam: Normal facial anatomy CVS/Resp Exam: Normal breath sounds, Normal heart sounds Neuro Exam: Alert Sedation: Sedation: Etomidate (20 mg IV x2 doses) ASA Classification: 1 normal healthy patient Response During Procedure: Handled secretions adeq, Maintained airway well, Oxygenation stable, Sedation appropriate, Vital signs stable Complications During/After: None Reversal: None required Mental Status After Procedure: Alert, Oriented X3 Post-Procedure: Alert prior to discharge, Pt rtn pre-proc baseline, Vital signs normal Attestation: I performed procedure, I performed sedation Re-Eval/Medical Decision Med Decision/Clinical Course 31-year-old female with a history of recurring abscesses of the breast. She has several old abscesses in various stages of healing. There is one dominant abscess on the left breast which was I&D, cultured, irrigated, and packed. Another area was incised but had no drainage. She has had no dominant organism identified on culture recently. Her previous abscess did not improve on MRSA treatment but did improve on strep treatment. She was give IV Zosyn to be followed by PO Augmentin. She will contact me in the next day or 2 if she is having further problems. She is to return to the emergency room in 2 days for recheck and removal of the packing with possible repacking.. She was also given a prepack of oxycodone/acetaminophen. Source of Hx: Old records Re-Evaluation/Progress #1: Time of Eval: 22:56 Re-Evaluation/Progress Note: Pt rechecked. Pt has 3 abscesses that are all superficial enough to drain here. Fully discussed conscious sedation and informed consent was given. All questions were answered. Re-Evaluation/Progress #2: Time of Eval: 00:20 Re-Evaluation/Progress Note: Pt rechecked. Performed abscess drainage and conscious sedation with pt's informed consent. All questions were answered. Re-Evaluation/Progress #3: Time of Eval: 01:49 Re-Evaluation/Progress Note: Pt rechecked. Informed pt of plan for discharge. Pt understands and agrees with plan for discharge. F/U instructions and RTER warnings given. All questions addressed. Counseled Regarding: Diagnosis, Lab results, Need for follow-up, When/why to return to ED Discharge & Departure Impression: Primary Impression: Left breast abscess Additional Impression: Encounter for incision and drainage procedure Disposition: Home Discharge Condition All VS Reviewed: Yes Condition: Improved Patient Instructions: Abscess Incision and Drainage (DC), Moderate Sedation (ED ) Additional Instructions: The 2 smallest areas were not drained. Under sedation these were examined carefully and there does not appear to be any fluid in them. The smaller lesion on the left breast was in size but no drainage came from it. The larger lesion had a moderate amount of pus drainage. Gauze packing was inserted. You received a long-acting anesthetic injection which should last through the night. You received Zosyn IV antibiotic in the emergency room. Follow that with amoxicillin clavulanate (Augmentin) 875 mg, one pill twice daily. The culture is pending and we will call you if that is not the appropriate antibiotic. That antibiotic decision is based upon the successful antibiotic you received last time. Warm compresses 2 or 3 times daily. Tylenol and/or ibuprofen as needed for pain. Oxycodone/Tylenol and this is Percocet) one every 4-6 hours as needed for severe pain, #10 prepack dispensed. The packing needs to be removed in 2 days. Call the wound care clinic in the morning for a follow-up appointment. Contact me at [phone] between the hours of 9 PM and 6 AM the next couple of nights if you have any questions or concerns. Referrals: Jennyfer Aldrich MD (PCP) [facility] Scribe Attestation Portions of this note were transcribed by Radha Seay. I, Dr. Bonner personally performed the history, physical exam and medical decision-making; I reviewed and confirmed the accuracy of the information in the transcribed note. Signed by: Amy Forrest, 05/08/17 and 23:50. copies to: [facility]; Jennyfer Aldrich MD, Howard L MD May 08, 2017 21:53 Radha Perez May 08, 2017 22:01
[2017-05-08] MEDS ORDERED: HYDROmorphone 1 mg/mL Inj IM ONE (22:30)
[2017-05-08] MEDS ORDERED: Piperacillin-Tazo 3.375 Gm Inj 3.375 GM in Dextrose 5% Minibag Plus 50 ML IV ONE (23:00)
[2017-05-08] MEDS ORDERED: Ondansetron 2 mg/mL 2 mL Inj IV PRN (23:00)
[2017-05-08] MEDS ORDERED: Etomidate 2 mg/mL 20 mL Inj IV ONE (23:00)
[2017-05-09] MEDS ORDERED: Bupivacaine 0.5%/EPI 50 mL Inj ONE (00:23)
[2017-05-09] MEDS ORDERED: _oxyCODONE/APAP 5-325 mg Tablet PO PRN (01:10)
[2017-05-09] MEDS ORDERED: HYDROmorphone 0.5 mg/0.5 mL iSecure Syringe IVPUSH PRN (01:35)
[2017-05-09 02:09] VITALS: BP 110/74; PULSE 110; RESP 14; O2SAT 95
[2017-05-09] MEDS ORDERED: _Amoxicillin-Clavulanate 875-125 mg Tablet PO SCH (08:30)
--- NOTE | 2017-05-09 14:03 | DRSVH ---
ULTRASOUND OF LEFT BREAST: 05/08/2017 CLINICAL: Palpable left breast lumps and redness. Comparison is made to exams dated: 03/09/2017 ultrasound and 03/07/2017 ultrasound - [facility]. Color flow ultrasound of the left breast was performed. Wing scale images of the real-time examinati on were reviewed. There is a benign 1.9 cm oval mass with a circumscribed margin in the left breast at 9 o'clock anteri or depth. This correlates as palpated. There also is a benign 1.8 cm oval mass with a circumscribed margin in the left breast at 10 o'clock anterior depth. This oval mass is hypoechoic. This correlates as palpated. Additionally, there is a benign 9 mm oval mass with a circumscribed margin in the left breast at 7 o' clock anterior depth. This oval mass is hypoechoic. This correlates as palpated. IMPRESSION: BENIGN Palpable findings correspond to skin masses likely representing sebaceous cysts. Superimposed infect ion is possible. Recommend medical therapy with clinical followup to resolution. If findings persis t surgical consultation may be needed for removal. Please note, percutaneous image guided biopsy of possible sebaceous cysts in contraindicated. Return to annual mammogram screening schedule is recommended beginning at age 40. This exam was interpreted at Station ID: [id number]. Electronically Signed By: Ted Jon M.D. cj/:05/09/2017 10:47:02 letter sent: Clinical Evaluation Ultrasound BI-RADS: 2 Benign Additional referring physicians: REY REYES
== END 2017-05-09 02:00 | disposition home or self-care (01) ==
LOC: SED 20:15
DX: N61.1 Abscess of the breast and nipple (principal); F17.200 Nicotine dependence, unspecified, uncomplicated; Z86.14 Personal history of Methicillin resistant Staphylococcus aureus infection; Z88.1 Allergy status to other antibiotic agents; Z88.2 Allergy status to sulfonamides
CPT/HCPCS: 10061; 76642; 81025; 87070; 87205; 94799; 96365; 96372; 96375; 99152; 99285; J1170; J1200; J1885; J2405; J2543

== ENCOUNTER 2017-05-10 16:28 | Emergency (ER) | payer OTHER ==
[~2017-05-10] VITALS: Ht 167.6 cm; Wt 127.0 kg
[2017-05-10 16:44] VITALS: BP 134/85; PULSE 104; RESP 17; O2SAT 96
--- NOTE | 2017-05-10 17:04 | ED.REPORT ---
HPI-Rash / Abscess Date of Service May 10, 2017 ED Provider: Ashlie Baez History of Present Illness: 31-year-old female here for wound recheck. She has an abscess of her left breast that she had I&D 2 days ago here and packing was placed. Pain has decreased, swelling has decreased. She is taking her Augmentin as prescribed. Here for recheck. No new symptoms. Nursing Notes Stated Complaint: WOUND CHECK Chief Complaint: Wound Recheck/Suture Removal Nursing Notes Reviewed: Yes Allergies: Coded Allergies: Mortensen (Verified Allergy, Severe, Anaphylaxis, 05/08/17) Sulfa (Sulfonamide Antibiotics) (Verified Allergy, Severe, Hives, 05/08/17) erythromycin base (Verified Allergy, Mild, 05/08/17) sulfisoxazole (Verified Allergy, Mild, 05/08/17) Scheduled Dexamethasone (Dexamethasone) 4 Mg Tablet 4 MG PO BID Ondansetron ODT (Ondansetron ODT) 8 Mg Tab.rapdis 8 MG PO QID Scheduled PRN Cyclobenzaprine (Cyclobenzaprine) 10 Mg Tablet 10 MG PO TID PRN PRN Spasm Ibuprofen (Ibuprofen) 800 Mg Tablet 800 MG PO TID PRN PRN For Pain Ondansetron (Zofran) 4 Mg Tablet 4 MG PO Q4H PRN PRN For Nausea Ondansetron ODT (Ondansetron ODT) 8 Mg Tab.rapdis 8 MG PO Q4H PRN PRN For Nausea oxyCODONE-Acetaminophen 5-325 mg (oxyCODONE-Acetaminophen 5-325 mg) 1 Each Tablet 1-2 TAB PO Q4 Hours PRN PRN For Pain oxyCODONE-Acetaminophen 5-325 mg (oxyCODONE-Acetaminophen 5-325 mg) 1 Each Tablet 1-2 TAB PO Q6H PRN PRN For Pain oxyCODONE-Acetaminophen 5-325 mg (oxyCODONE-Acetaminophen 5-325 mg) 1 Each Tablet 1-2 TAB PO Q6H PRN PRN For Pain General Time Seen by MD: 16:49 Chief Complaint Abscess Hx Obtained From: Patient Arrived By: Walk-in Onset Occurred: 4 days ago Location: : Chest Quality: Sharp Severity: Current: Mild Severity: Maximum: Severe Pertinent Negative: Pt denies other symptoms Recent Healthcare: Recent hospitalization Similar Sx Previous: Yes Past Medical History Past Medical History Notes: Seen in ED November 10, 2015 for epigastric pain, ultrasound normal to Patient underwent HIDA scan November 17, hyperdynamic EF Past Medical History Obesity Possible disc herniation Left breast abscess Past Surgical History none reported Smoking History Current Every Day Smoker Social History Alcohol Use: Denies alcohol use Drug Use: Denies drug use Other Social History: Good social support Ambulatory Status Independent Review of Systems Constitutional: Denies: Chills, Fever Skin: Reports Rash, Reports Swelling Complete sys rev & neg: except as marked. Physical Exam Initial Vital Signs Vital Signs (First) Date Time Temp Pulse Resp B/P Pulse Ox O2 Delivery O2 Flow Rate FiO2 05/10/17 16:44 36.4 104 17 134/85 96 Room Air Initial VS: Reviewed, Vital signs normal General/Constitutional: Awake, Alert, Well appearing Color / Condition: Positive: Erythema localized Rash / Lesion Notes: Erythema unchanged since visit here 2 days ago. Left breast is largely nontender. Approximately 4 cm of packing removed. No further drainage noted coming from breast. The drainage on the packing was purulent. Procedures Incision & Drainage Abscess I & D Abscess: Left breast wound repacked this and cleaned with Hibiclens. Approximately 3-4 cm of packing placed Re-Eval/Medical Decision Med Decision/Clinical Course Patient improving we will continue on Augmentin. Culture not back yet. She will follow up in 2 days with her PCPs. Packing replaced. Discharge & Departure Shift Change Sign-Out Procedures: Results discussed Impression: Primary Impression: Cellulitis Site of cellulitis: trunk Site of cellulitis of trunk: unspecified site Qualified Code: L03.319 - Cellulitis of trunk, unspecified Additional Impression: Abscess Disposition: Home Discharge Condition All VS Reviewed: Yes Condition: Stable Patient Instructions: Abscess Follow-up (ED) Additional Instructions: Monitor wound, if it seems to be getting worse instead of better return to emergency room, otherwise to follow up in 2 days with your PCP for packing removal and further care. Your culture was not back today. Continue to take your Augmentin as prescribed. Do not soak wound. Shower as usual protecting area. Referrals: Jennyfer Aldrich MD (PCP) EDSupervising Provider for APC: Karlos Pate MD copies to: Jennyfer Aldrich MD, Linnea K [facility] May 10, 2017 17:04
[2017-05-10 18:04] VITALS: BP 129/86; PULSE 82; RESP 20; O2SAT 96
== END 2017-05-10 18:00 | disposition home or self-care (01) ==
LOC: SED 16:28
DX: N61.1 Abscess of the breast and nipple (principal); E66.9 Obesity, unspecified; F17.200 Nicotine dependence, unspecified, uncomplicated; Z68.42 Body mass index [BMI] 45.0-49.9, adult; Z88.2 Allergy status to sulfonamides; Z88.1 Allergy status to other antibiotic agents